=== PATIENT | female | born 1970 | race Caucasian/White ===

== ENCOUNTER 2023-09-26 07:24 | Inpatient (IN) | payer OTHER ==
[~2023-09-26] VITALS: Ht 167.6 cm; Wt 69.7 kg
[2023-09-26 08:49] LABS: Basophils # (auto) 0 10 ^3/uL (0-0.2); Basophils % (auto) 0.2 % (0.0-2.0); Eosinophils # (auto) 0.3 10 ^3/uL (0-0.8); Eosinophils % (auto) 5.1 % (0.0-7.0); Hematocrit 40.1 % (36.0-46.0); Hemoglobin 13.5 g/dL (12.2-16.2); Lymphocytes # (auto) 1.9 10 ^3/uL (0.4-5.4); Lymphocytes % (auto) 32.1 % (10.0-50.0); Mean Corpuscular Hemoglobin 30.1 pg (28.0-32.0); Mean Corpuscular Hgb Conc. 33.8 g/dL (32.0-36.0); Mean Corpuscular Volume 89.2 fL (80.0-100.0); Monocytes # (auto) 0.4 10 ^3/uL (0-1.3); Monocytes % (auto) 7.3 % (0.0-12.0); Neutrophils # (auto) 3.2 10 ^3/uL (1.6-8.6); Neutrophils % (auto) 55.3 % (37.0-80.0); Nucleated Red Blood Cells % 0.1 %; Red Blood Cells 4.49 10^6/uL (4.0-5.20); Red Cell Distribution Width 12.5 % (11.8-14.3); White Blood Cell 5.9 10^3/uL (4.4-10.8)
[2023-09-26 09:11] LABS: Alanine Aminotransferase 17 U/L (7-40); Albumin 4.7 g/dL (3.2-4.8); Alkaline Phosphatase 68 U/L (46-116); Anion Gap 5 (5-15); Aspartate Aminotransferase 18 U/L (13-40); BUN/Creatinine Ratio 20.8 (10.0-20.0); Blood Urea Nitrogen 16 mg/dL (9-23); Calcium 9.5 mg/dL (8.5-10.1); Carbon Dioxide 30 mmol/L (20-30); Chloride 104 mmol/L (98-107); Glucose 93 mg/dL (74-106); Potassium 4.1 mmol/L (3.5-5.1); Sodium 139 mmol/L (136-145)
[2023-09-26 09:12] LABS: Bilirubin, Total 0.2 mg/dL (0.2-1.0); Total Protein 6.9 g/dL (5.7-8.2)
[2023-09-26 09:23] LABS: Urine Bacteria FEW /hpf (None Seen); Urine Blood Negative /uL (Negative); Urine Budding Yeast OCCASIONAL /hpf (None Seen); Urine Clarity Turbid (Clear); Urine Color Yellow (Yellow); Urine Protein, UAD Negative (Negative); Urine Urobilinogen Normal (Negative); Urine WBC 9 /hpf (0 - 5)
[2023-09-26] MEDS ORDERED: ACETAMINOPHEN 325 MG TAB PO PRN (09:30)
[2023-09-26] MEDS ORDERED: ONDANSETRON HCL 4 MG/2 ML VIAL IV PRN (09:30)
[2023-09-26] MEDS ORDERED: BUPR150T18 PO (09:32)
[2023-09-26] MEDS ORDERED: TOPI50TA53 PO (09:32)
[2023-09-26] MEDS ORDERED: TRAZ-227 PO (09:32)
[2023-09-26] MEDS ORDERED: ROSU10TA64 PO (09:32)
[2023-09-26] MEDS: PANTOPRAZOLE 40 MG/10 ML VIAL INJ IV ONE (09:47)
[2023-09-26] MEDS: cefTRIAXone 1GM/50ML D5W 50 ML IV ONE (09:48)
[2023-09-26] MEDS: SODIUM CHLORIDE 0.9% 1,000 ML IV SCH (09:48)
[2023-09-26] MEDS: KETOROLAC TROMETH 30 MG/ML 1ML VIAL IV ONE (09:48)
[2023-09-26] MEDS ORDERED: BUPROPION HCL PO SCH (10:00)
[2023-09-26] MEDS: ENOXAPARIN SOD 40 MG/0.4 ML SYRINGE SC SCH (10:00)
[2023-09-26 10:06] VITALS: PULSE 87; RESP 14; O2SAT 95
[2023-09-26] MEDS: metroNIDAZOLE 500MG/100ML 100 ML IV ONE (10:12)
[2023-09-26] MEDS: TOPIRAMATE 25 MG TAB PO SCH (10:12)
[2023-09-26] MEDS ORDERED: DOCUSATE SOD 100 MG CAP PO PRN (10:15)
[2023-09-26] MEDS: MILK OF MAGNESIA 30ML SUSP PO ONE (10:26)
[2023-09-26] MEDS: DOCUSATE SOD 100 MG CAP PO ONE (10:26)
[2023-09-26] MEDS: metroNIDAZOLE 500 MG TAB PO ONE (10:28)
[2023-09-26] MEDS: HYDROcodone-ACET 5/325MG TAB PO PRN (11:18)
[2023-09-26 11:32] VITALS: BP 126/81; PULSE 81; RESP 18; TEMP 98.1; O2SAT 97
[2023-09-26] MEDS ORDERED: metroNIDAZOLE 500MG/100ML 100 ML IV SCH (14:00)
[2023-09-26] MEDS: metroNIDAZOLE 500 MG TAB PO SCH (14:17)
[2023-09-26 15:35] VITALS: BP 101/65; PULSE 77; RESP 18; TEMP 98.3; O2SAT 92
[2023-09-26] MEDS: buPROPion HCL 75 MG TAB PO SCH (17:06)
[2023-09-26 20:12] VITALS: PULSE 77; RESP 17; O2SAT 100
[2023-09-26] MEDS: traZODone HCL 50 MG TAB PO SCH (21:11)
[2023-09-26 21:54] VITALS: BP 99/65; PULSE 77; RESP 17; TEMP 98.2; O2SAT 100
[2023-09-27] VITALS (7 sets, daily range): BP systolic 95–157; BP diastolic 54–73; PULSE 68–85; RESP 16–20; TEMP 97.6–98.2; O2SAT 92–98
[2023-09-27] MEDS: KETOROLAC TROMETH 30 MG/ML 1ML VIAL IV PRN (05:27)
[2023-09-27 06:05] LABS: Basophils # (auto) 0 10 ^3/uL (0-0.2); Basophils % (auto) 0.2 % (0.0-2.0); Eosinophils # (auto) 0.3 10 ^3/uL (0-0.8); Eosinophils % (auto) 5.1 % (0.0-7.0); Hematocrit 35.3 % (36.0-46.0); Lymphocytes # (auto) 1.6 10 ^3/uL (0.4-5.4); Lymphocytes % (auto) 29.9 % (10.0-50.0); Mean Corpuscular Hemoglobin 30.4 pg (28.0-32.0); Mean Corpuscular Hgb Conc. 34.1 g/dL (32.0-36.0); Mean Corpuscular Volume 89.2 fL (80.0-100.0); Monocytes # (auto) 0.5 10 ^3/uL (0-1.3); Monocytes % (auto) 8.5 % (0.0-12.0); Neutrophils # (auto) 3.1 10 ^3/uL (1.6-8.6); Neutrophils % (auto) 56.3 % (37.0-80.0); Red Blood Cells 3.96 10^6/uL (4.0-5.20); Red Cell Distribution Width 12.6 % (11.8-14.3); White Blood Cell 5.4 10^3/uL (4.4-10.8)
[2023-09-27 06:23] LABS: Alanine Aminotransferase 14 U/L (7-40); Albumin 3.9 g/dL (3.2-4.8); Alkaline Phosphatase 54 U/L (46-116); Anion Gap 5 (5-15); Aspartate Aminotransferase 19 U/L (13-40); BUN/Creatinine Ratio 12.5 (10.0-20.0); Blood Urea Nitrogen 9 mg/dL (9-23); Calcium 8.9 mg/dL (8.5-10.1); Carbon Dioxide 26 mmol/L (20-30); Chloride 110 mmol/L (98-107); Glucose 88 mg/dL (74-106); Sodium 141 mmol/L (136-145)
[2023-09-27 06:24] LABS: Bilirubin, Total 0.2 mg/dL (0.2-1.0); Total Protein 5.8 g/dL (5.7-8.2)
[2023-09-27] MEDS: cefTRIAXone 1GM/50ML D5W 50 ML IV SCH (09:25)
[2023-09-27] MEDS: MILK OF MAGNESIA 30ML SUSP PO SCH (09:26)
[2023-09-27] MEDS: PANTOPRAZOLE 40 MG TAB PO SCH (09:26)
[2023-09-27] MEDS ORDERED: PANTOPRAZOLE 40 MG/10 ML VIAL INJ IV SCH (10:00)
[2023-09-27] MEDS: GASTROGRAFIN 30 ML SOL ONE (11:09)
[2023-09-28 01:00] VITALS: BP 92/63; PULSE 69; RESP 18; TEMP 98; O2SAT 90
[2023-09-28 05:00] VITALS: BP 96/58; PULSE 80; RESP 20; TEMP 97.9; O2SAT 96
[2023-09-28 08:00] VITALS: PULSE 81; RESP 17; O2SAT 96
[2023-09-28 09:00] VITALS: BP 110/72; PULSE 81; RESP 17; TEMP 98.2; O2SAT 96
[2023-09-28] MEDS ORDERED: CIPR-173 PO (12:59)
[2023-09-28] MEDS ORDERED: METR-344 PO (12:59)
[2023-09-28 14:25] VITALS: BP 123/70; PULSE 98; RESP 16; TEMP 98.4; O2SAT 95
== END 2023-09-28 14:51 | disposition home or self-care (01) | DRG 392 ==
LOC: ER 07:24 → OVERFLOW 09:29 → EAST 10:58 → WEST WING 17:58
PROVIDERS: ADMIT Nurse Practitioner Family; ATTEND Internal Medicine Geriatric Medicine
DX: K52.9 Noninfective gastroenteritis and colitis, unspecified (principal); K80.20 Calculus of gallbladder without cholecystitis without obstruction; K42.9 Umbilical hernia without obstruction or gangrene; K59.00 Constipation, unspecified; Z90.710 Acquired absence of both cervix and uterus; Z79.899 Other long term (current) drug therapy
CPT/HCPCS: 36415; 74176; 74177; 76705; 78226; 80053; 81001; 85025; 87086; C9113; G0378; J1885; J3490